=== PATIENT | female | born 1970 | race Caucasian/White ===

== ENCOUNTER → 2019-09-26 | Outpatient (CLI) | payer BC ==
--- NOTE | 2019-09-26 11:29 | Diagnostic Imaging Report ---
INDICATION: Mass in the midline below the mandible. Time of exam 10:34 AM Multiple views of the mandible were obtained. Mandible appears intact. No fractures are seen. No bony destructive changes are identified. IMPRESSION: No osseous abnormalities detected. If patient has soft tissue mass, CT soft tissue neck with contrast would be recommended for further evaluation. Dictated by: Dictated on workstation # [id number]
== END ==
LOC: RAD FS 10:10
PROVIDERS: ATTEND Family Medicine
DX: R22.0 Localized swelling, mass and lump, head (principal)
CPT/HCPCS: 70110